=== PATIENT | female | born 1990 | race Caucasian/White ===

== ENCOUNTER 2016-10-08 06:47 | Day surgery (SDC) | payer OTHER ==
[~2016-10-08 06:47] MED LIST: Buffered Lidocaine 0.9% SYRIN* 5 ML/SYR SYRINGE INTRADERM ONE; Famotidine IV* 10 MG/ML 2 ML (20 mg) IV ONE
[2016-10-08] MEDS ORDERED: Famotidine IV* 10 MG/ML 2 ML (20 mg) ONE (06:59)
[2016-10-08] MEDS ORDERED: Buffered Lidocaine 0.9% SYRIN* 5 ML/SYR SYRINGE ONE (06:59)
[2016-10-08] MEDS ORDERED: Clindamycin 900 MG IVPREMIX(* 900 MG/50 ML SDV IV ONE (06:59)
[2016-10-08] MEDS ORDERED: Lidocaine 1% INJ* 10 MG/ML 30 ML SDV ONE (07:13)
[2016-10-08] MEDS ORDERED: Bupivacaine 0.5% W/EPI SDV* 10 ML VIAL INJ ONE (07:13)
[2016-10-08] MEDS ORDERED: KETAMINE HCL* 50 MG/ML 10 ML VIAL ONE (07:30)
[2016-10-08] MEDS ORDERED: Midazolam* 1 MG/ML 5 ML VIAL (5 MG) ONE (07:30)
[2016-10-08] MEDS ORDERED: Propofol* 10 MG/ML 20 ML BTL IV PUSH ONE (07:31)
[2016-10-08] MEDS ORDERED: Lidocaine 2% PF * 5 ML VIAL ONE (07:31)
[2016-10-08] MEDS ORDERED: Ketorolac INJ* 30 MG/ML 1 ML VIAL ONE (07:31)
[2016-10-08] MEDS ORDERED: Ondansetron INJ* 2 MG/ML VIAL ONE (07:31)
[2016-10-08] MEDS ORDERED: DiMENhydriNATE IV* 50 MG/ML VIAL IV PUSH PRN (08:49)
[2016-10-08] MEDS ORDERED: Acetaminophen TAB* 325 MG PO PRN (08:49)
[2016-10-08] MEDS ORDERED: Ibuprofen TAB* 600 MG PO PRN (09:16)
[2016-10-08 10:10] VITALS: BP 96/64
--- NOTE | 2016-10-09 02:17 | OP ---
CC: James Dawkins MD * DATE OF OPERATION: 10/08/16 - [facility] DATE OF : 86 SURGEON: Vaughn Florez MD ROLLER MAN: CHRIS Prado ANESTHESIOLOGIST: Dr. Burch. ANESTHESIA: Local with monitored anesthesia care. PRE-OP DIAGNOSIS: Umbilical hernia. POST-OP DIAGNOSIS: Umbilical hernia. OPERATIVE PROCEDURE: Open primary repair of umbilical hernia. ESTIMATED BLOOD LOSS: Minimal. SPECIMENS: None. COMPLICATIONS: None. DRAINS: None. WOUND CLASSIFICATION: 1. BRIEF HISTORY: Ms. Lexie King is a 26-year-old woman who has had a longstanding umbilical hernia increased in size and now causing significant discomfort at times. She has a reducible umbilical hernia and is now to undergo an elective repair. DESCRIPTION OF PROCEDURE: A written informed consent was obtained, the abdomen was marked with indelible ink and preoperative antibiotics were administered. The patient was taken to the operating room, placed in the supine position. Sequential compression devices and a warming blanket were applied. The abdomen was prepped and draped in the usual sterile fashion. Time-out verification was completed. It should be noted that the patient had refused a preoperative hCG test and this was documented in the chart. Then she understood the risks and alternatives to surgery in light of this fact. Risk of anesthesia to a fetus were discussed, she understands these risks but refused the test. 1% lidocaine mixed with 0.25% Marcaine was infiltrated into the periumbilical area. A semicircular incision was made and carried down through subcutaneous tissue. The overlying umbilical skin was excised off an umbilical hernia sac, which was from the surrounding tissue down to the fascial defect. The fascial defect was really only about 8 mm and 1 cm in size and able to reduce the hernia sac without difficulty. I undermined and developed the preperitoneal space circumferentially around the fascial defect and the peritoneal cavity was not entered. In light of the small size of the defect, I did not feel that a mesh was indicated nor would it have been realistically possible to place one of our smaller meshes into the preperitoneal space, thus the fascial defect was closed with interrupted 0 Polysorb sutures placed in a transverse orientation. Hemostasis was assured. The subcutaneous tissue and skin were closed with 3-0 and 4-0 Polysorb suture. Steri- Strips and sterile dressings were applied. The patient tolerated the procedure well, was taken to the recovery room in stable condition. [id number] #: [id number] MTDD
== END 2016-10-08 10:50 | disposition home or self-care (01) ==
LOC: OR 06:47
PROVIDERS: ATTEND Surgery
DX: K42.9 Umbilical hernia without obstruction or gangrene (principal); F17.210 Nicotine dependence, cigarettes, uncomplicated; B19.20 Unspecified viral hepatitis C without hepatic coma
CPT/HCPCS: J1885; J2001; J2250; J2405; J2704

== ENCOUNTER 2017-02-12 12:23 | Emergency (ER) | payer OTHER ==
[2017-02-12 12:42] VITALS: BP 131/76
--- NOTE | 2017-02-12 13:05 | UC ---
Abdominal Pain Female HPI - HPI Summary HPI Summary: RUQ ABDOMINAL PAIN X 2 DAYS PAIN IS SEVER, COMES AND GOES, WORSE WITH EATING HX OF SIMILAR PAIN WAS TOLD IT MIGHT BE HER GALLBLADDER NO NAUSEA , NO VOMITING , NO DIARRHEAS OR CONSTIPATION , NO DYSURIA, - History of Current Complaint Chief Complaint: UCAbdominalPain Stated Complaint: ABDOMINAL PAIN Time Seen by Provider: 02/12/17 12:31 Hx Obtained From: Patient Hx Last Menstrual Period: 2014 Onset/Duration: Gradual Onset, Lasting Days - 2, Still Present Timing: Intermittent Episodes Lasting: Severity Initially: Severe Severity Currently: Moderate Location: Discrete At: RUQ Radiates: No Character: Cramping, Dull, Tearing Aggravating Factor(s): Food Alleviating Factor(s): Nothing Associated Signs and Symptoms: Negative: Diaphoresis, Fever, Cough, Chest Pain, Dizzy, Back Pain, Constipation, Blood in Stool, Urinary Symptoms, Decreased Appetite, Vaginal Bleeding, Vaginal Discharge, Nausea, Vomiting, Diarrhea Allergies/Adverse Reactions: Allergies Allergy/AdvReac Type Severity Reaction Status Date / Time Penicillins [PCN] Allergy Severe Rash, Verified 02/12/17 12:42 throat swells PMH/Surg Hx/FS Hx/Imm Hx Cardiovascular History: Cardiac Disease Other History Of: Negative For: Anticoagulant Therapy - Surgical History Surgical History: Yes Surgery Procedure, Year, and Place: hx of trach/removed, cardiac - Family History Known Family History: Negative: Cardiac Disease, Hypertension, Diabetes - Social History Alcohol Use: Occasionally Substance Use Type: None Substance Use Comment - Amount & Last Used: Hx of opiod abuse Smoking Status (MU): Current Every Day Smoker Type: Cigarettes Amount Used/How Often: 1ppd smoked since 12 years old Length of Time of Smoking/Using Tobacco: unknown. and unknown if cigaretts or other. Have You Smoked in the Last Year: Yes Household Exposure Type: Cigarettes - Immunization History Most Recent Influenza Vaccination: 01/2013 Most Recent Tetanus Shot: 2010 Most Recent Pneumonia Vaccination: 01/2013 Review of Systems Constitutional: Negative Skin: Negative Eyes: Negative ENT: Negative Respiratory: Negative Gastrointestinal: Abdominal Pain Genitourinary: Negative Is Patient Immunocompromised?: No All Other Systems Reviewed And Are Negative: Yes Physical Exam Triage Information Reviewed: Yes Appearance: Well-Appearing, Pain Distress, Thin Vital Signs: Initial Vital Signs Temp 97.8 F 02/12/17 12:35 Pulse 100 02/12/17 12:35 Resp 18 02/12/17 12:35 BP 131/76 02/12/17 12:35 Pulse Ox 98 02/12/17 12:35 Vital Signs Reviewed: Yes Eyes: Positive: Conjunctiva Clear ENT: Positive: Normal ENT inspection, Hearing grossly normal, Pharynx normal Neck: Positive: Supple, Nontender, No Lymphadenopathy Respiratory: Positive: Chest non-tender, Lungs clear, Normal breath sounds Cardiovascular: Positive: RRR, No Murmur, Pulses Normal Abdomen Description: Positive: Soft, Other: - RUQ TENDERNESS. Negative: Distended, Guarding Bowel Sounds: Positive: Present Abd Pain Female Course/Dx - Differential Dx/Diagnosis Provider Diagnoses: ABDOMINAL PAIN Discharge - Discharge Plan Condition: Stable Disposition: HOME Patient Education Materials: Abdominal Pain (ED) Forms: *School Release Referrals: James Dawkins MD [Primary Care Provider] - 5 Days
== END 2017-02-12 13:05 | disposition home or self-care (01) ==
LOC: UCCORT 12:23
DX: R10.11 Right upper quadrant pain (principal); F17.210 Nicotine dependence, cigarettes, uncomplicated
CPT/HCPCS: 99211; G0463